=== PATIENT | female | born 1975 | race African-American/Black ===

== ENCOUNTER 2018-06-06 23:59 | Emergency (ER) | payer MEDICAID ==
[~2018-06-06] VITALS: Ht 170.2 cm; Wt 81.6 kg
[2018-06-07] MEDS ORDERED: AMIODARONE HCL (50 MG/ ML) 3 ML VIAL IV ONE (00:05)
[2018-06-07] MEDS ORDERED: EPINEPHrine HCL 1 MG/10 ML SYRG IV ONE (00:05)
[2018-06-07] MEDS ORDERED: ATROPINE SULF 1 MG/10ml SYR IV ONE (00:05)
[2018-06-07] MEDS ORDERED: SODIUM BICARBONATE 8.4% INJ 50ML SYRINGE IV ONE (00:05)
[2018-06-07] MEDS ORDERED: CALCIUM CHLOR(10%) 100MG/ML 10ML SYRINGE IV ONE (00:05)
[2018-06-07] MEDS ORDERED: SODIUM BICARBONATE 8.4% INJ 50ML SYRINGE ONE (00:10)
[2018-06-07] MEDS ORDERED: NOREPINEPHRINE 8 MG/250ML KIT 250 ML IV ONE (00:11)
== END 2018-06-07 06:13 | disposition expired ==
LOC: EDBD 06-07 00:04 → ER 06-07 00:04
DX: I46.9 Cardiac arrest, cause unspecified (principal)
CPT/HCPCS: 92950; 99291; J0171; J0282